=== PATIENT | male | born 1995 | race Caucasian/White ===

== ENCOUNTER 2019-11-03 03:20 | Emergency (ER) | payer BC ==
[2019-11-03] MEDS ORDERED: Sodium Chloride 0.9% 1,000 ML IV ONE (03:48)
--- NOTE | 2019-11-03 04:35 | EDM.PDOC ---
ED HPI GENERAL MEDICAL PROBLEM - General Chief Complaint: Gastrointestinal Problem Stated Complaint: VOMITING CONFUSED Time Seen by Provider: 11/03/19 03:30 Source of Information: Reports: Patient History Limitations: Reports: No Limitations - History of Present Illness INITIAL COMMENTS - FREE TEXT/NARRATIVE: TRIAGE NOTE -- pt woke up feeling nauseous around 0000, vomitted x4 times and says there was a "healthy" amount of blood in there. denies drinking anything red. while vomiting, felt dizzy and got very sweaty. now feeling better. thinks he's had a fever the past few days, afebrile currently. [ End ] As above. Patient was well and in his usual state of health up until the time he was awakened feeling unwell about midnight. On close questioning it is not clear that he actually saw something representing blood in his vomitus. He notes that he has had fast food and thinks perhaps there was some food coloring showing up in the vomitus. In any event he does not feel particularly unwell on presentation. No readily identified risk factors. He has not taken any medication or utilized any other measure to moderate symptoms. - Related Data Allergies Allergy/AdvReac Type Severity Reaction Status Date / Time cefadroxil [From Durice] Allergy Hives Verified 11/03/19 03:36 Past Medical History - Past Health History Medical/Surgical History: Denies Medical/Surgical History - Past Surgical History HEENT Surgical History: Reports: Oral Surgery Social & Family History - Tobacco Use Smoking Status *Q: Never Smoker - Caffeine Use Caffeine Use: Reports: None ED ROS GENERAL - Review of Systems Review Of Systems: Comprehensive ROS is negative, except as noted in HPI. ED EXAM, GI/ABD - Physical Exam Exam: See Below Exam Limited By: No Limitations General Appearance: Alert, WD/WN Ears: Normal External Exam Nose: Normal Inspection Throat/Mouth: Normal Inspection Head: Atraumatic, Normocephalic Neck: Normal Inspection, Supple Respiratory/Chest: No Respiratory Distress, Lungs Clear Cardiovascular: Regular Rate, Rhythm GI/Abdominal Exam: Soft, Non-Tender Rectal (Males) Exam: Normal Exam, Normal Rectal Tone, Prostate Normal, Heme - Stool. No: Black Stool, Bloody Stool Back Exam: Normal Inspection Extremities: Normal Inspection Neurological: Alert, Oriented Psychiatric: Normal Affect Skin Exam: Warm, Dry Course - Vital Signs Last Recorded V/S: Last Vital Signs Temp 37.0 C 11/03/19 03:32 Pulse 53 L 11/03/19 03:32 Resp 20 11/03/19 03:32 BP 133/86 11/03/19 03:32 Pulse Ox 100 11/03/19 03:32 - Orders/Labs/Meds Orders: Active Orders 24 hr Category Date Time Status CBC WITH AUTO DIFF [HEME] Stat Lab 11/03/19 04:00 Results OCCULT BLOOD SCREEN [OP] Stat Lab 11/03/19 03:45 Ordered Sodium Chloride 0.9% [Normal Saline] 1,000 ml Med 11/03/19 03:48 Active IV ONETIME Medication Orders Sodium Chloride (Normal Saline) 1,000 mls @ 1,000 mls/hr IV ONETIME ONE Stop: 11/03/19 04:47 Last Admin: 11/03/19 04:01 Dose: 1,000 mls/hr Labs: Laboratory Tests 11/03/19 11/03/19 Range/Units 04:00 04:00 WBC 9.41 H (4.23-9.07) K/mm3 RBC 5.90 (4.63-6.08) M/mm3 Hgb 16.7 (13.7-17.5) gm/dl Hct 48.9 (40.1-51.0) % MCV 82.9 (79.0-92.2) fl MCH 28.3 (25.7-32.2) pg MCHC 34.2 (32.2-35.5) g/dl RDW Std Deviation 37.0 (35.1-43.9) fL Plt Count 228 (163-337) K/mm3 MPV 10.4 (9.4-12.3) fl Neut % (Auto) 87.3 H (34.0-67.9) % Lymph % (Auto) 5.4 L (21.8-53.1) % Andrews % (Auto) 6.2 (5.3-12.2) % Eos % (Auto) 0.9 (0.8-7.0) Baso % (Auto) 0.1 (0.1-1.2) % Neut # (Auto) 8.22 H (1.78-5.38) K/mm3 Lymph # (Auto) 0.51 L (1.32-3.57) K/mm3 Andrews # (Auto) 0.58 (0.30-0.82) K/mm3 Eos # (Auto) 0.08 (0.04-0.54) K/mm3 Baso # (Auto) 0.01 (0.01-0.08) K/mm3 Sodium 145 (136-145) mEq/L Potassium 4.3 (3.5-5.1) mEq/L Chloride 107 (98-107) mEq/L Carbon Dioxide 27 (21-32) mEq/L Anion Gap 15.3 H (5-15) BUN 30 H (7-18) mg/dL Creatinine 1.2 (0.7-1.3) mg/dL Est Cr Clr Drug Dosing 96.32 mL/min Estimated GFR (MDRD) > 60 (>60) mL/min BUN/Creatinine Ratio 25.0 H (14-18) Glucose 136 H (74-106) mg/dL Calcium 8.7 (8.5-10.1) mg/dL Total Bilirubin 1.1 H (0.2-1.0) mg/dL AST 17 (15-37) U/L ALT 24 (16-63) U/L Alkaline Phosphatase 57 (46-116) U/L Total Protein 7.0 (6.4-8.2) g/dl Albumin 4.1 (3.4-5.0) g/dl Globulin 2.9 gm/dL Albumin/Globulin Ratio 1.4 (1-2) Meds: Medications Generic Name Dose Route Start Last Admin Trade Name Freq PRN Reason Stop Dose Admin Sodium Chloride 1,000 mls @ 1,000 mls/hr 11/03/19 03:48 11/03/19 04:01 Normal Saline IV 11/03/19 04:47 1,000 mls/hr ONETIME ONE Administration - Re-Assessments/Exams Free Text/Narrative Re-Assessment/Exam: 11/03/19 04:42 The patient has received a liter of normal saline IV and feels well and is happy to go home. There are no salient lab abnormals. He is not at all anemic. He is heme-negative from below. There is little suspicion that the patient has a GI bleed. In any event he is urged to monitor his bowel habits and come in immediately for black stool or any evidence of blood in the stool. Departure - Departure Time of Disposition: 04:43 Disposition: Home, Self-Care 01 Condition: Good Clinical Impression: Viral gastroenteritis - Discharge Information Referrals: PCP,None [Primary Care Provider] - Forms: ED Department Discharge Additional Instructions: You have come in with vomiting. There was a question of possible upper GI bleeding. You are not the least bit anemic. There is no evidence of blood in your stool on rectal exam. It is recommended that you monitor your stool for the next several days. Return to ER for any black stool, bright red blood or old blood which is dark red in the stool. You undoubtedly have a viral gastroenteritis. The IV fluids he received will help get you over this briskly. It is recommended that you take nothing but clear liquids for the next 12 hours. For any vomiting or inability to take adequate fluids to pass light-colored urine frequently during the day come to the emergency room right away. Return for fever, abdominal pain or any other symptom of acute illness. If there is no brisk resolution of this condition return. Sepsis Event Note - Evaluation Sepsis Screening Result: No Definite Risk - Focused Exam Vital Signs: Vital Signs Temp Pulse Resp BP Pulse Ox 11/03/19 03:32 37.0 C 53 L 20 133/86 100 Date Exam was Performed: 11/03/19 Time Exam was Performed: 04:42 - My Orders Last 24 Hours: My Active Orders 11/03/19 03:45 OCCULT BLOOD SCREEN [OP] Stat 11/03/19 03:48 Sodium Chloride 0.9% [Normal Saline] 1,000 ml IV ONETIME 11/03/19 04:00 CBC WITH AUTO DIFF [HEME] Stat - Assessment/Plan Last 24 Hours: My Active Orders 11/03/19 03:45 OCCULT BLOOD SCREEN [OP] Stat 11/03/19 03:48 Sodium Chloride 0.9% [Normal Saline] 1,000 ml IV ONETIME 11/03/19 04:00 CBC WITH AUTO DIFF [HEME] Stat
== END 2019-11-03 05:02 | disposition home or self-care (01) ==
LOC: JD.ED 03:20
DX: A08.4 Viral intestinal infection, unspecified (principal); Z88.8 Allergy status to other drugs, medicaments and biological substances
CPT/HCPCS: 36415; 80053; 85025; 96360; 99284; J7030